=== PATIENT | female | born 1950 | race American Indian/Alaskan Native ===

== ENCOUNTER 2019-08-21 13:08 | Emergency (ER) | payer MEDICARE, MEDICAID, OTHER ==
[~2019-08-21] VITALS: Ht 157.5 cm; Wt 62.1 kg
[2019-08-21] MEDS ORDERED: HYDRALAZINE HCL25 MG PO (13:26)
[2019-08-21] MEDS ORDERED: PROAIR HFA8.5 GM INH (13:27)
[2019-08-21] MEDS ORDERED: OMEPRAZOLE20 MG PO (13:28)
== END 2019-08-21 15:50 | disposition home or self-care (01) ==
LOC: ED 13:08
DX: S60.222A Contusion of left hand, initial encounter (principal); J44.9 Chronic obstructive pulmonary disease, unspecified; Z79.899 Other long term (current) drug therapy; Z79.51 Long term (current) use of inhaled steroids; W23.0XXA Caught, crushed, jammed, or pinched between moving objects, initial encounter
CPT/HCPCS: 73130; 99283-25

== ENCOUNTER 2021-01-08 06:50 | Day surgery (SDC) | payer MEDICARE, OTHER, MEDICAID ==
[~2021-01-08] VITALS: Ht 157.5 cm; Wt 76.6 kg
[~2021-01-08 06:50] MED LIST: CORAL CALCIUM1 EAC3 PO; FISH OIL 1,0001 EAC2 NG; FISH OIL 1,0001 EAC3 PO; FLONASE ALLERG9.9 ML NAS; HYDRALAZINE HCL25 MG PO; HYDROXYZINE HCL10 MG PO; LIDOCAINE PAIN1 EACH TOP; LOVASTATIN20 MG PO; OMEPRAZOLE20 MG PO; PROAIR HFA8.5 GM INH; TRELEGY ELLIPT1 EAC1 IH; TYLENOL325 M1 PO; VITAMIN B-121000 MCG PO; VITAMIN D325 MC2 PO; ZANAFLEX4 MG PO
--- NOTE | 2021-01-08 11:37 | NUR ---
01/08/21 1137 Janey Ricketts 1029 PT ARRIVED IN PACU SLEEPY. ICE TO ABD. 1045 C/O ABD PAIN 7/10. FENTANYL 50MCG GIVEN IVP. 1100 PAIN INCREASED TO 8/10. SPOKE WITH ANESTHESIA. 1105 ANESTHESIA AT BEDSIDE DOING BILAT TAP BLOCKS FOR PAIN CONTROL. OUTTER DRSG REMOVED AND GAUZE LEFT IN PLACE OVER LANG TO HELP WITH BLOCKS. 1125 TAP BLOCKS COMPLETE. 2 ABD'S OVER GAUZE ON ABD AND TAPED. ICE TO ABD FOR COMFORT. 1130 RESTING. REU.
--- NOTE | 2021-01-08 13:13 | NUR ---
patient resting. post op vs done per rn by this oil well logging engineer.
[2021-01-08] MEDS ORDERED: POTASSIUM CHLO10 MEQ PO (13:39)
--- NOTE | 2021-01-08 14:00 | NUR ---
PT ARRIVED TO UNIT AT 1230 VIA STRETCHER. MIDLINE DRESSING C,D,I. POST-OP HERNIA REPAIR. GONZALEZ OUTPUT CLEAR YELLOW, QUANTITY SUFFICIENT. PT C/O 02/15 ABD PAIN. TOLERATING FULL LIQUIDS WELL. GIVEN NORCO FOR PAIN. RESTING IN BED. SCD'S ON. VSS. PT IS W/OUT FURTHER COMPLAINT. CALL LIGHT IN REACH.
--- NOTE | 2021-01-08 18:31 | NUR ---
PT HAD UNEVENTFUL AFTERNOON. PAIN HAS BEEN WELL MANAGED W/ NORCO. GONZALEZ REMOVED @ 1730, PT OOB TO AMBULATE TO AND FROM BATHROOM SEVERAL, TOLERATING WELL. SBA W/ FWW. PT HAD 2 EPISODES INCONTINENT OF LOOSE STOOLS. ATTENDS CHANGED. VSS. PT HAS BEEN TOLERATED FULL LIQUIDS WELL AND HAS DECENT APPETITE. DRINKING MODERATE AMOUNT OF FLUIDS. DENIES NAUSEA. CONTINUES TO RECEIVE D5 LR @ 75 MLS/HR.
--- NOTE | 2021-01-08 19:15 | NUR ---
SHIFT REPORT RECEIVED FROM AURA ALTAMIRANO. PT RESTING IN CHAIR. NO NEEDS AT THIS TIME. CALL LIGHT IN REACH.
--- NOTE | 2021-01-08 19:20 | NUR ---
SHIFT REPORT RECEIVED FROM AURA ALTAMIRANO. PT RESTING IN BED. PAIN 01/16, DENIES NEED FOR INTERVENTION. NO NEEDS AT THIS TIME. IV FLUIDS INFUSING PER ORDER. CALL LIGHT IN REACH.
--- NOTE | 2021-01-08 20:25 | NUR ---
PT CALLED, REQUESTED HER INHALER, FRESH ICE WATER, FRESH ICE BAG FOR ABDOMINAL AREA. REQUESTED TO HAVE A "PT PORTAL" TO BE ABLE TO ACCESS MEDICAL INFORMATION. WILL PASS ON TO THE MORNING SHIFT. CALL LIGHT WITHIN REACH.
--- NOTE | 2021-01-08 21:11 | NUR ---
ASSESSMENT, VS AND I&O COMPLETED. PT ABD PAIN 7/10, PRN PAIN MED PROVIDED. SCHEDULED MEDS PROVIDED. GCS 15, A&O X4. LUNGS CLEAR, HEART TONES REGULAR. ABD SOFT, TENDER, ,MILDLY DISTENDED, BOWEL TONES ACTIVE. DRESSINGS CDI. IV WNL, CDI, FLUSHED WELL. CMS INTACT. SCDs ON. ICE WATER PROVIDED. PT UP TO BR AT THIS TIME.
--- NOTE | 2021-01-08 21:35 | NUR ---
CALL LIGHT ANSWERED. SBA WITH FOUR WHEEL WALKER FROM RESTROOM AFTER VOID BACK TO BED. IVF INFUSING WNL. SLEEP MASK AND EAR PLUGS PROVIDED REQUESTED. SCDS ON. BED RAILS UP REQUESTED. CALL LIGHT IN REACH. LIGHTS OFF IN ROOM.
--- NOTE | 2021-01-09 | NUR ---
PT RESTING IN BED, EYES CLOSED. RR EVEN, UNLABORED. IV FLUIDS INFUSING PER ORDER. CALL LIGHT IN REACH.
--- NOTE | 2021-01-09 02:05 | NUR ---
ASSESSMENT, VS AND I&O COMPLETED. GCS 15, A&O X4. LUNGS CLEAR, HEART TONES REGULAR. ABD SOFT, TENDER, MILDLY DISTENDED, BOWEL TONES ACTIVE, DRESSING CDI. PT PAIN 7/10, PRN PAIN MED PROVIDED. NEW BAG IV FLUIDS PROVIDED. CMS INTACT. IV WNL, FLUIDS INFUSING PER ORDER. SCDs ON. PT AMBUKATES SBA, FWW TO BR AND BACK TO BED, TOLERATES WELL. DENIES NAUSEA. NO OTHER NEEDS. CALL LIGHT IN REACH.
--- NOTE | 2021-01-09 04:00 | NUR ---
PT RESTING IN BED, EYES CLOSED. RR EVEN, UNLABORED. CALL LIGHT IN REACH.
--- NOTE | 2021-01-09 05:55 | OR ---
[facility] [address], [place] [address] Signed DATE OF OPERATION: 01/08/2021 SURGEON: Pop Lemus MD PREOPERATIVE DIAGNOSIS: Epigastric incisional hernias x3. POSTOPERATIVE DIAGNOSIS: Epigastric incisional hernias x4. PROCEDURE: Primary epigastric incisional herniorrhaphy x4. ESTIMATED BLOOD LOSS: None. INDICATIONS: Sherri is a 70-year-old significantly disabled female, who was asked to see me for epigastric incisional hernias. From what we can tell based on the CT scan and ultrasound, she had probably at least 3 incisional hernias in her midline epigastric incision. She had required an open cholecystectomy in the past. She has also had a laparoscopic right colectomy. She is a little over her ideal body weight, but she has rather significant vertigo and requires a 4-wheeled walker. However, she does still live alone. She does have some family members in the area. She did not think anyone would be helping her tonight or the days ahead. Based on these possible intraoperative findings, we decided she would stay overnight at least until we are sure she can ambulate and take care of herself at home. In the office, neither Sherri nor myself can directly palpate hernia and/or a fascial defect. However, they are quite obvious on the radiographic studies. She felt quite confident these were symptomatic and causing her pain and she wanted to have them repaired. I explained her it is quite common to have several small hernias along the midline incision. We talked about the possibility of intraabdominal mesh as well. I did give her our brochure on hernias and we had looked at it in detail. She is quite aware of the difference between a primary suture repair and a mesh repair. She is aware that the recurrent hernia right for primary suture repair is higher. There is risk including, but not limited to bleeding, infection, scarring, change in contour of the skin, damage to bowel, infection of mesh requiring removal, recurrent hernias, and chronic pain. She had expressed understanding and wished to proceed. PROCEDURE NOTE: Electronically Signed By: POP LEMUS MD 01/09/21 0555 PATIENT NAME: SHERRI SANTOS OPERATIVE REPORT DATE OF : 54 REPORT #: [id number] PHYSICIAN: POP LEMUS MD PCP: RHIANNA WRIGHT REPORT IS CONFIDENTIAL AND NOT TO BE RELEASED WITHOUT AUTHORIZATION [facility] [address] [place] [id number] Signed I met with Sherri once again this morning. She had asked me to completely excise her previous scar. We also reviewed her radiographic studies. On this occasion, we thought we saw 4th hernia along the midline. I had mentioned this to Sherri as well. After this, she was taken in the operating room and placed in the supine position under general endotracheal tube anesthesia. She was given preoperative antibiotics along with subcutaneous heparin. SCDs were utilized. A Ch catheter was inserted with return of clear yellow urine. She was then prepped and draped in the usual sterile fashion. We excised her previous midline scar and that was discarded. We worked our way down through the adipose tissue bluntly and with the cautery. We found 3 hernias in the epigastric midline, several centimeters cephalad to the umbilicus. After some palpation and additional dissection, we found the 4th hernia down next to the umbilicus. Each hernia sac was dissected free, excised and removed. No fascial defect was much larger than 2 cm. There was plenty of healthy tissue in between each fascial defect. Underneath, there was really a little of an omentum that we could ascertain to pull past the piece of mesh. We know that her activity levels are extremely low, given her significant vertigo and her 4-wheeled walker. Rather than put her through a much larger surgery, we on this occasion, we would close each of the small fascial defects primarily with interrupted #1 [id number] Prolene sutures. We did this in a transverse fashion. This gave nice repair without any undue tension whatsoever. We then injected local anesthetic into her abdominal wall. The wound was irrigated and suctioned out until clear. We closed the wound in layers using interrupted 3-0 Monocryl suture including the dermis. Kayy were then used to reapproximate the skin edges. Dry gauze and tape were then applied. Sherri was then awakened from her anesthesia, extubated in the OR, and taken to recovery room in stable condition. Pop Lemus MD ALB/MODL /[id number] cc: Pop Lemus MD Chart Filed Incomplete [facility] Electronically Signed By: POP LEMUS MD 01/09/21 0555 PATIENT NAME: SHERRI SANTOS OPERATIVE REPORT DATE OF : 54 REPORT #: [id number] PHYSICIAN: POP LEMUS MD PCP: RHIANNA WRIGHT REPORT IS CONFIDENTIAL AND NOT TO BE RELEASED WITHOUT AUTHORIZATION [facility] [address] [place], [place] [address] Signed Copies: POP LEMUS MD CHART FILED [facility] ~ Electronically Signed By: POP LEMUS MD 01/09/21 0555 PATIENT NAME: SHERRI SANTOS OPERATIVE REPORT DATE OF : 54 REPORT #: [id number] PHYSICIAN: POP LEMUS MD PCP: RHIANNA WRIGHT REPORT IS CONFIDENTIAL AND NOT TO BE RELEASED WITHOUT AUTHORIZATION
[2021-01-09] MEDS ORDERED: HYDROCODON-ACE1 EAC8 PO (08:48)
[2021-01-09] MEDS ORDERED: IBU400 MG PO (08:49)
[2021-01-09] MEDS ORDERED: LACTULOSE10 GM/15 M PO (09:11)
--- NOTE | 2021-01-09 09:12 | NUR ---
MED REC COMPLETE
--- NOTE | 2021-01-09 09:30 | NUR ---
PATIENT READY FOR DISCHARGE THIS AM. DISCUSSED PATIENT NEEDS WITH SIMBA ALTAMIRANO. THIS RN INTO PATIENT ROOM, CASE MANAGEMENT EVALUATION COMPLETE. PATIENT CURRENTLY LIVE AT HOME ALONE. SHE STATES SHE HAS TWO SISTER THAT LIVE ON HER BLOCK THAT ARE AVAILABLE TO HELP IF NEEDED. PATIENT STATES HER FRIEND MARIXA WITH BE PICKING HER UP THIS AM AND TAKING HER TO [facility]. SIMBA RN IN ROOM TO COMPLETE DISCHARGE AND ANSWER FURTHER QUESTIONS.
--- NOTE | 2021-01-09 10:08 | NUR ---
PT READY TO DC AND HAD APPROX 200 MLS EMESIS AFTER STANDING UP FROM TOILET. RECEIVED NORCO PRIOR. DR LEMUS CALLED AND RECEIVED ORDER FOR 4 MG ZOFRAN ODT ONCE AND ALSO TO CALL PRESCRIPTION FOR 10 TABLETS OF ZOFRAN, 4 MG ODT Q6HP FOR NAUSEA. PRESCRIPTION CALLED TO [facility]. DC INSTRUCTIONS REVIEWED. PT VERBALIZED UNDERSTANDING. PT ALSO REQUESTING SARITA NAIK AND DR LEMUS OK'D. VSS. 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 PT GIVEN INHALERS SHE RECEIVED WHILE HERE, THOUGH WILL RESUME TRILOGY INHALER AT HOME. ZOFRAN ODT GIVEN. PT DENIES NAUSEA AT THIS TIME AND DENIES FURTHER NEEDS. AWAITING RIDE.
[2021-01-09] MEDS ORDERED: ONDANSETRON ODT4 MG PO (10:16)
== END 2021-01-09 10:40 | disposition home or self-care (01) ==
LOC: DS 06:50 → MS 11:55 → DS 01-09 10:40
PROVIDERS: ATTEND Colon & Rectal Surgery
PROC: 0WUF0JZ Supplement Abdominal Wall with Synthetic Substitute, Open Approach (ICD-10-PCS; 2021-01-08)
PROC: 0WQF0ZZ Repair Abdominal Wall, Open Approach (ICD-10-PCS; principal; 2021-01-08 08:00)
DX: K43.2 Incisional hernia without obstruction or gangrene (principal); J44.9 Chronic obstructive pulmonary disease, unspecified; E55.9 Vitamin D deficiency, unspecified; Z85.038 Personal history of other malignant neoplasm of large intestine
CPT/HCPCS: 00832; 64488; 76942; A9270; J0131; J0330; J0690; J1100; J1644; J1885; J2001; J2405; J2704; J3010; J3475; J7121

== ENCOUNTER 2021-02-21 09:48 | Emergency (ER) | payer OTHER, MEDICARE, MEDICAID ==
[~2021-02-21] VITALS: Ht 157.5 cm; Wt 76.2 kg
[~2021-02-21 09:48] MED LIST changes: +HYDROCODON-ACE1 EAC8 PO; +IBU400 MG PO; +LACTULOSE10 GM/15 M PO; +ONDANSETRON ODT4 MG PO; +POTASSIUM CHLO10 MEQ PO
[2021-02-21] MEDS ORDERED: TIZANIDINE HCL4 MG PO (14:56)
== END 2021-02-21 13:50 | disposition home or self-care (01) ==
LOC: ED 09:48
DX: S69.92XA Unspecified injury of left wrist, hand and finger(s), initial encounter (principal); M54.2 Cervicalgia; M54.5 Low back pain; V03.10XA Pedestrian on foot injured in collision with car, pick-up truck or van in traffic accident, initial encounter; J44.9 Chronic obstructive pulmonary disease, unspecified; Z79.899 Other long term (current) drug therapy
CPT/HCPCS: 71250; 72125; 73130; 74176; 99284-25

== ENCOUNTER 2022-12-08 14:54 | Emergency (ER) | payer MEDICARE, OTHER ==
[~2022-12-08] VITALS: Ht 157.5 cm; Wt 72.1 kg
[~2022-12-08 14:54] MED LIST changes: +TIZANIDINE HCL4 MG PO
[2022-12-08] MEDS ORDERED: LEVOFLOXACIN500 MG PO (19:00)
[2022-12-08 20:28] VITALS: BP 124/60
--- NOTE | 2022-12-09 16:29 | EKG ---
[facility] [address] [facility] [place] [address] Signed Normal sinus rhythm Normal ECG When compared with ECG of 31-DEC-2020 13:41, Vent. rate has increased BY 36 BPM Borderline criteria for Inferior infarct are no longer present T wave inversion no longer evident in Inferior leads T wave amplitude has decreased in Lateral leads Confirmed by ADARSH GONZALES MD ([id number]) on 12/09/2022 4:29:37 PM Electronically Signed By: ADARSH GONZALES MD 12/09/22 1629 PATIENT NAME: SHONDA SANTOS Electrocardiogram DATE OF : 54 PHYSICIAN: ADARSH GONZALES MD REPORT #: [id number] REPORT IS CONFIDENTIAL AND NOT TO BE RELEASED WITHOUT AUTHORIZATION
== END 2022-12-08 20:10 | disposition home or self-care (01) ==
LOC: ED 14:54
DX: N39.0 Urinary tract infection, site not specified (principal); J44.9 Chronic obstructive pulmonary disease, unspecified; Z79.899 Other long term (current) drug therapy; Z20.822 Contact with and (suspected) exposure to COVID-19; Z79.890 Hormone replacement therapy
CPT/HCPCS: 36415; 71045; 80053; 81001; 83605; 83735; 85025; 85610; 87502; 93005; 93010; 94640; C9803; U0003